=== PATIENT | female | born 1995 | race Caucasian/White ===

== ENCOUNTER 2017-05-24 23:37 | Emergency (ER) | payer SELFPAY ==
[2017-05-24 23:59] VITALS: BP 128/79
== END 2017-05-25 | disposition left against medical advice (07) ==
LOC: ER 23:37
DX: Z53.21 Procedure and treatment not carried out due to patient leaving prior to being seen by health care provider (principal)

== ENCOUNTER 2018-02-26 16:38 | Emergency (ER) | payer MEDICAID ==
--- NOTE | 2018-02-26 17:41 | ER Document Report ---
ED Psych Disorder / Suicide - General Chief Complaint: Psych Problem Stated Complaint: PSYCH EVAL Time Seen by Provider: 02/26/18 16:44 Notes: The patient is a 22-year-old female, past medical history prior suicide attempts , psychosis, presents requesting help with her medications. She has not slept for the past week. EMS brought in her medications and she has not taken her nightly Risperdal or [place] for the past 3 days. She said Lamictal has helped her in the past. She denies any SI, HI or substance abuse for the past week. Her last drug use was 1 week ago and included cocaine, heroin and methamphetamines. Patient denies chest pain, shortness of breath, headache, fevers, neck stiffness or attempt to harm herself. TRAVEL OUTSIDE OF THE [place] IN LAST 30 DAYS: No - Related Data Allergies/Adverse Reactions: quetiapine fumarate [From Seroquel] Allergy (Severe, Verified 03/24/16 14:08) acetaminophen [From Tylenol] Allergy (Verified 03/24/16 14:08) Past Medical History - General Information source: Patient - Social History Smoking Status: Current Every Day Smoker Frequency of alcohol use: Social Drug Abuse: Cocaine, Heroin, Methamphetamine Family History: Reviewed & Not Pertinent Patient has suicidal ideation: No Patient has homicidal ideation: No Pulmonary Medical History: Denies: Hx Tuberculosis Neurological Medical History: Reports: Hx Migraine. Denies: Hx Cerebrovascular Accident, Hx Seizures Endocrine Medical History: Denies: Hx Graves' Disease, Hx Hyperthyroidism, Hx Hypothyroidism Renal/ Medical History: Denies: Hx End Stage Renal Disease, Hx Kidney Stones, Hx Ovarian Cysts, Hx Peritoneal Dialysis, Hx Pelvic Inflammatory Disease Malignancy Medical History: Denies: Hx Breast Cancer, Hx Cervical Cancer, Hx Leukemia, Hx Ovarian Cancer Musculoskeltal Medical History: Denies Hx Multiple Sclerosis, Reports Hx Musculoskeletal Deformity, Reports Hx Musculoskeletal Trauma Psychiatric Medical History: Reports: Hx Attention Deficit Hyperactivity Disorder, Hx Bipolar Disorder, Hx Depression, Hx Schizophrenia Denies: Hx Dementia Traumatic Medical History: Reports: Hx Fractures Infectious Medical History: Denies: Hx HIV Past Surgical History: Reports: Hx Orthopedic Surgery - Left tib/fib repair, left shouldar ac repair.. Denies: Hx Pacemaker - Immunizations Immunizations up to date: Yes Hx Diphtheria, Pertussis, Tetanus Vaccination: Yes Review of Systems - Review of Systems Notes: REVIEW OF SYSTEMS: CONSTITUTIONAL: -fevers, -chills EENT: -eye pain, -difficulty swallowing, -nasal congestion CARDIOVASCULAR: -chest pain, -syncope. RESPIRATORY: -cough, -SOB GASTROINTESTINAL: -abdominal pain, -nausea, -vomiting, -diarrhea GENITOURINARY: -dysuria, -hematuria MUSCULOSKELETAL: -back pain, -neck pain SKIN: -rash or skin lesions. HEMATOLOGIC: -easy bruising or bleeding. LYMPHATIC: -swollen, enlarged glands. NEUROLOGICAL: -altered mental status or loss of consciousness, -headache, - neurologic symptoms PSYCHIATRIC: -anxiety, -depression, +insomnia ALL OTHER SYSTEMS REVIEWED AND NEGATIVE. Physical Exam - Vital signs Vitals: Temp Pulse Resp BP Pulse Ox 98.0 F 112 H 16 126/74 H 98 02/26/18 16:47 02/26/18 16:47 02/26/18 16:47 02/26/18 16:47 02/26/18 16:47 - Notes Notes: PHYSICAL EXAMINATION: GENERAL: Well-appearing, well-nourished and in no acute distress. HEAD: Atraumatic, normocephalic. EYES: Pupils equal round and reactive to light, extraocular movements intact, sclera anicteric, conjunctiva are normal. ENT: nares patent, oropharynx clear without exudates. Moist mucous membranes. NECK: Normal range of motion, supple without lymphadenopathy LUNGS: Breath sounds clear to auscultation bilaterally and equal. No wheezes rales or rhonchi. HEART: Mild tachycardia. ABDOMEN: Soft, nontender, normoactive bowel sounds. No guarding, no rebound. No masses appreciated. EXTREMITIES: Normal range of motion, no pitting or edema. No cyanosis. NEUROLOGICAL: Cranial nerves grossly intact. Normal speech, normal gait. Normal sensory and motor exams. PSYCH: Appropriate mood, cooperative, denies SI or HI. Does not appear acutely psychotic. SKIN: Warm, Dry, normal turgor, no rashes or lesions noted. Course - Re-evaluation Re-evalutation: Patient appears very well and is appropriate. She does not appear acutely psychotic and has no SI or HI at this time. No indication for IVC at this time. Patient is requesting medication changes, as she says that Lamictal has helped her better than lithium or Risperdal. She has her packet of medications with her and she has not taken her lithium or Risperdal for the past 3 days. She took her dose this morning. Instructed her that her cocaine and methamphetamine use, along with not taking her Risperdal, is most likely leading to her insomnia. She is counseled about always taking her medications and speaking to her primary mental health team about medication changes. Pt would like to stay overnight and speak to mental health about any medication changes. She has no criteria for IVC. - Vital Signs Vital signs: Temp Pulse Resp BP Pulse Ox 98.0 F 112 H 16 126/74 H 98 02/26/18 16:47 02/26/18 17:25 02/26/18 16:47 02/26/18 16:47 02/26/18 16:47 - Laboratory Result Diagrams: 02/26/18 17:43 02/26/18 17:43 Laboratory results interpreted by me: 02/26/18 02/26/18 17:43 17:43 WBC 11.0 H Hgb 11.8 L Hct 35.5 L RDW 15.2 H Salicylates < 1.0 L Acetaminophen < 10 L [place] 0.5 L Discharge - Discharge Clinical Impression: Nonadherence to medication Insomnia Qualifiers: Insomnia type: unspecified Qualified Code(s): G47.00 - Insomnia, unspecified Condition: Stable
[2018-02-26 17:52] LABS: AMORPHOUS SEDIMENT,URINE TRACE /HPF; APPEARANCE,URINE CLOUDY; BILIRUBIN,URINE NEGATIVE (NEGATIVE); COLOR,URINE YELLOW; GLUCOSE, URINE NEGATIVE (NEGATIVE); KETONES,URINE NEGATIVE (NEGATIVE); LEUKOCYTE ESTERASE,URINE NEGATIVE (NEGATIVE); NITRITE,URINE NEGATIVE (NEGATIVE); PROTEIN,URINE NEGATIVE (NEGATIVE); URINE SPECIFIC GRAVITY 1.014; UROBILINOGEN,URINE NEGATIVE mg/dL (<2.0)
[2018-02-26 17:56] LABS: ABSOLUTE BASOPHILS # (AUTO) 0.1 10^3/uL (0.0-0.2); ABSOLUTE EOSINOPHILS # (AUTO) 0.2 10^3/uL (0.0-0.6); ABSOLUTE LYMPHOCYTES (AUTO) 2.4 10^3/uL (0.5-4.7); ABSOLUTE MONOCYTES (AUTO) 0.7 10^3/uL (0.1-1.4); ABSOLUTE NEUT (AUTO) 7.7 10^3/uL (1.7-8.2); BASOPHILS % (AUTO) 0.5 % (0-2); EOSINOPHILS % (AUTO) 1.7 % (0-6); HEMATOCRIT 35.5 % (36.0-47.0); HEMOGLOBIN 11.8 g/dL (12.0-15.5); LYMPHOCYTES % (AUTO) 21.7 % (13-45); MEAN CORPUSCULAR HEMOGLOBIN 28.5 pg (27.0-33.4); MEAN CORPUSCULAR HGB CONC 33.2 g/dL (32.0-36.0); MEAN CORPUSCULAR VOLUME 86 fl (80-97); MONOCYTES % (AUTO) 6.1 % (3-13); PLATELET COUNT 249 10^3/uL (150-450); RED BLOOD COUNT 4.13 10^6/uL (3.72-5.28); RED CELL DISTRIBUTION WIDTH 15.2 % (11.5-14.0); TOTAL CELLS COUNTED % (AUTO) 100 %
[2018-02-26 18:02] LABS: URINE AMPHETAMINES SCREEN NEGATIVE; URINE BARBITURATES SCREEN NEGATIVE; URINE BENZODIAZEPINES SCREEN NEGATIVE; URINE COCAINE SCREEN NEGATIVE; URINE MARIJUANA (THC) SCREEN NEGATIVE; URINE METHADONE SCREEN NEGATIVE; URINE PHENCYCLIDINE SCREEN NEGATIVE
[2018-02-26 18:16] LABS: ALANINE AMINOTRANSFERASE 22 U/L (9-52); ALBUMIN 4.4 g/dL (3.5-5.0); ALKALINE PHOSPHATASE 56 U/L (38-126); ANION GAP 12 (5-19); ASPARTATE AMINO TRANSFERASE 20 U/L (14-36); BILIRUBIN,DIRECT 0.3 mg/dL (0.0-0.4); BILIRUBIN,TOTAL 0.3 mg/dL (0.2-1.3); BLOOD UREA NITROGEN 12 mg/dL (7-20); CARBON DIOXIDE 30 mmol/L (22-30); CHLORIDE 103 mmol/L (98-107); GLUCOSE 77 mg/dL (75-110); LITHIUM 0.5 mEq/L (0.6-1.2); POTASSIUM 4.5 mmol/L (3.6-5.0); SODIUM 144.7 mmol/L (137-145); TOTAL PROTEIN 7.1 g/dL (6.3-8.2)
[2018-02-26 18:18] LABS: ACETAMINOPHEN < 10 ug/mL (10-30); ALCOHOL < 10 mg/dL (NONE DETECTED); SALICYLATE < 1.0 mg/dL (2.0-20.0)
--- NOTE | 2018-02-26 18:36 | EKG REPORT ---
SEVERITY:- ABNORMAL ECG - SINUS RHYTHM ST ELEVATION SUGGESTS NORMAL VARIANT. : Confirmed by: Nirmal Israel MD 26-Feb-2018 18:35:39
--- NOTE | 2018-02-27 09:24 | ER Document Report ---
Doctor's Note Notes: 02/27/18 10:22 As the rounding physician for our psychiatric patients, I have reviewed the chart, vitals, lab work. Patient has been examined and noted to be stable, she states that she is here to tweak her medications, wishes to be discharged home. I am awaiting mental health in put.
--- NOTE | 2018-02-27 10:20 | PSYCHOLOGICAL NOTE ---
Psych Note - Psych Note Psych Note: Reason for consult:request for medication changes The patient is a 22-year-old female, past medical history prior suicide attempts , psychosis, presents requesting help with her medications. She has not slept for the past week. EMS brought in her medications and she has not taken her nightly Risperdal or [place] for the past 3 days. She said Lamictal has helped her in the past. Patient disclosed she needs her "medication regulated." She is seen by [facility] [place] [place] and just had a home visit yesterday and disclosed her outpatient provider told her they would be holding off any medication changes currently. She reports that [facility] changes as a "jump decision that I now regret." She discloses that he understands her outpatient provider is most appropriate resource for any medication changes since they follow her progress. Patient agrees to contact her outpatient provider with further questions in regards to her medications. Patient denies missing any medications stating that she did receive a new pack of medications so her blister packs are overlapping and it might look like she has not taken any but she has. Patient is alert and orientated to person, place, time and circumstance. Mood is euthymic with congruent affect as evidenced by patient smiling and openly engaging with clinician. Patient denies suicidal and homicidal ideation. Delusions are absent and behaviors congruent with intact reality based presentation i.e. organized and linear thought processes. Conversational speech was within normal rate, tone and prosody. Eye contact was well- maintained. Intellectual abilities appear to be within the average range. Attention and concentration are good. Insight, judgment, impulse control are currently good. Behavioral Health Team contacted [facility] [place], [place] to confirm patient receives services through them. Patient is assigned to an ACT Team. She is currently in [facility] for [facility] and is being followed until the patient decides if she will return to [facility] or if she needs to transfer to a new provider if she stays in [facility]. Patient was just in [facility] for psychiatric treatment for 01/16- 01/30. Patient was in [facility] from 02/07-02/13. Patient was voluntary while in [facility]. Patient was seen on Sunday and received her monthly medication shot. Patient will be seen Sunday at her home, but if she needs to be seen before she can walk in to the office. No medication changes at this time Diagnosis 1. 296.44 (F31.2) Bipolar I with psychotic features Impression/plan: Patient is cleared from acute psychiatric services. Patient has a higher level of care with [facility]. Patient was seen by her provider yesterday and disclosed they wanted to hold off on any medication changes. Patient disclosed she had been taking her medications; however, her blister packs show she has missed a few days. It is recommended the patient take her medication as prescribed and to follow up with her outpatient provider for any continued concerns for nonacute medication changes. Patient will be seen Sunday at her home, but if she needs to be seen before she can walk in to the office. Dr. Malloy was consulted on the care and management of this patient , attending physician is in agreement with recommendations and disposition.
[2018-02-27 11:23] VITALS: BP 119/68
== END 2018-02-27 11:22 | disposition home or self-care (01) ==
LOC: ER 16:38
DX: G47.00 Insomnia, unspecified (principal); Z91.14 Patient's other noncompliance with medication regimen; F17.200 Nicotine dependence, unspecified, uncomplicated; Z88.6 Allergy status to analgesic agent
CPT/HCPCS: 36415; 80053; 80178; 80307; 81001; 85025; 93005; 93010; 99285

== ENCOUNTER 2018-09-19 15:11 | Emergency (ER) | payer SELFPAY ==
[2018-09-19 15:42] LABS: ABSOLUTE EOSINOPHILS # (AUTO) 0.1 10^3/uL (0.0-0.6); ABSOLUTE LYMPHOCYTES (AUTO) 1.7 10^3/uL (0.5-4.7); ABSOLUTE MONOCYTES (AUTO) 0.4 10^3/uL (0.1-1.4); ABSOLUTE NEUT (AUTO) 3.2 10^3/uL (1.7-8.2); BASOPHILS % (AUTO) 0.8 % (0-2); EOSINOPHILS % (AUTO) 1.8 % (0-6); HEMATOCRIT 36.8 % (36.0-47.0); HEMOGLOBIN 12.6 g/dL (12.0-15.5); LYMPHOCYTES % (AUTO) 31.9 % (13-45); MEAN CORPUSCULAR HEMOGLOBIN 28.3 pg (27.0-33.4); MEAN CORPUSCULAR HGB CONC 34.3 g/dL (32.0-36.0); MEAN CORPUSCULAR VOLUME 83 fl (80-97); MONOCYTES % (AUTO) 7.4 % (3-13); PLATELET COUNT 188 10^3/uL (150-450); RED BLOOD COUNT 4.45 10^6/uL (3.72-5.28); RED CELL DISTRIBUTION WIDTH 14.5 % (11.5-14.0); SEGMENTED NEUTROPHILS % (AUTO) 58.1 % (42-78); TOTAL CELLS COUNTED % (AUTO) 100 %; WHITE BLOOD COUNT 5.4 10^3/uL (4.0-10.5)
--- NOTE | 2018-09-19 16:03 | PSYCHOLOGICAL NOTE ---
Psych Note - Psych Note Date seen by psych provider: 09/19/18 Time seen by psych provider: 15:40 Psych Note: Reason for Consult: manic Patient presented to [facility] via EMS. Patient reports that she had bad news of finding out her best friend today; patient became tearful and stood flat against the wall. She continued reports that her best friend is her cousin and her "grandmother's sister's aunt." Patient then started to laugh and reported that she did not even understand what she just said. Patient states "yes I am in a manic episode... Yes I screamed in the law heard me... Yes I broke the fridge with BPA... Yes the water bottle from the car was BPA free and I really appreciated being able to drink out of that... Yes I saw the Grim Jin.... Yes I heard (unintelligible)..." Patient then stated that she would really wish she could sleep until 6 AM tomorrow. At this point patient attempted to show the clinician that she scratched her stomach and lifted her shirt all the way up to her neck. Clinician reported she would talk to the attending physician to see what can be done to assist with helping her sleep. Patient stated thank you and started crying again. As clinician open the door was noted the patient continued to speak and continued to make demonstrate facial affect indicating she was still talking; however, no sound was coming from her mouth. Patient is alert and orientated to person, place, time and circumstance. Mood is manic with labile affect. Patient denies suicidal homicidal ideation. Patient reports seeing the Vonda reaper. Patient is currently having difficulty with linear organized conversation demonstrating flight of thought. Attention and concentration is poor. Insight, judgment, impulse control is poor. Medication recommendations per [facility]'s contracted psychiatrist Dr. Trey GRANGER are as follows Zyprexa MG twice daily clonidine 0.1 mg nightly Cogentin 1 mg daily Diagnosis 1. 296.44 (F31.2) Bipolar I with psychotic features Impression\\plan: Patient is recommended for IVC. Patient is currently manic, labile affect with flight of thought and possible hallucinations. Patient's attention, concentration, insight, judgment, and impulse control is poor; she is a danger to herself. Medication recommendations have been provided. patient will be reevaluated. Dr. Malloy was consulted and the care management this patient; attending physician is agreement with recommendations and disposition.
[2018-09-19 16:14] LABS: ALANINE AMINOTRANSFERASE 59 U/L (9-52); ALBUMIN 4.4 g/dL (3.5-5.0); ALKALINE PHOSPHATASE 58 U/L (38-126); ANION GAP 10 (5-19); ASPARTATE AMINO TRANSFERASE 34 U/L (14-36); BILIRUBIN,DIRECT 0.1 mg/dL (0.0-0.4); BILIRUBIN,TOTAL 0.7 mg/dL (0.2-1.3); BLOOD UREA NITROGEN 12 mg/dL (7-20); CALCIUM 9.6 mg/dL (8.4-10.2); CARBON DIOXIDE 27 mmol/L (22-30); CHLORIDE 106 mmol/L (98-107); GLUCOSE 91 mg/dL (75-110); POTASSIUM 5.1 mmol/L (3.6-5.0); SODIUM 142.7 mmol/L (137-145); TOTAL PROTEIN 7.3 g/dL (6.3-8.2)
[2018-09-19 16:20] LABS: ALCOHOL < 10 mg/dL (NONE DETECTED)
[2018-09-19 16:27] LABS: AMORPHOUS SEDIMENT,URINE TRACE /HPF; APPEARANCE,URINE CLOUDY; BILIRUBIN,URINE NEGATIVE (NEGATIVE); COLOR,URINE YELLOW; GLUCOSE, URINE NEGATIVE (NEGATIVE); KETONES,URINE NEGATIVE (NEGATIVE); LEUKOCYTE ESTERASE,URINE NEGATIVE (NEGATIVE); NITRITE,URINE NEGATIVE (NEGATIVE); PROTEIN,URINE NEGATIVE (NEGATIVE); URINE SPECIFIC GRAVITY 1.024
[2018-09-19 16:35] LABS: URINE AMPHETAMINES SCREEN NEGATIVE; URINE BARBITURATES SCREEN NEGATIVE; URINE BENZODIAZEPINES SCREEN NEGATIVE; URINE COCAINE SCREEN NEGATIVE; URINE MARIJUANA (THC) SCREEN NEGATIVE; URINE METHADONE SCREEN NEGATIVE; URINE PHENCYCLIDINE SCREEN NEGATIVE
[2018-09-19] MEDS: BENZTROPINE MESYLATE 1 MG TABLET PO SCH (16:44)
[2018-09-19] MEDS: OLANZAPINE 5 MG TABLET PO SCH (17:17)
--- NOTE | 2018-09-19 17:49 | ER Document Report ---
ED Psych Disorder / Suicide - General TRAVEL OUTSIDE OF THE [place] IN LAST 30 DAYS: No <BENITO SOTO - Last Filed: 09/19/18 17:55> <RALPH VILLAREAL - Last Filed: 09/20/18 08:49> <NINACECILIO - Last Filed: 09/20/18 10:11> - General Chief Complaint: Psych Problem Stated Complaint: PSYCH EVAL Time Seen by Provider: 09/19/18 16:35 Notes: Patient was brought in by EMS and says that she needs "a break from grieving". She says that her best friend just suddenly and unexpectedly. During the conversation, patient exhibits flight of ideas, confused somewhat, and unwillingness to talk at times. Says she does not want to mention the name but that it is a relative who has . Patient says she feels very tired. When asked about mental illness history, she mentions bipolar and schizophrenia. Says she has been on medicines for these conditions but no longer taking anything at this time. Sometimes, when the patient is answering my questions, I am not sure if she is doing so in an uncontrolled manner or if she is thinking and planning her responses to sound unusual or weird. Says she has hepatitis C, diagnosed about a year ago. Denies using any illicit drugs. (BENITO SOTO) - Related Data Allergies/Adverse Reactions: quetiapine fumarate [From Seroquel] Allergy (Severe, Verified 03/24/16 14:08) acetaminophen [From Tylenol] Allergy (Verified 03/24/16 14:08) Past Medical History - Social History Smoking Status: Never Smoker Chew tobacco use (# tins/day): No Frequency of alcohol use: None Drug Abuse: None Family History: Reviewed & Not Pertinent Patient has suicidal ideation: No Patient has homicidal ideation: No Pulmonary Medical History: Denies: Hx Tuberculosis Neurological Medical History: Reports: Hx Migraine Musculoskeletal Medical History: Reports Hx Musculoskeletal Deformity, Reports Hx Musculoskeletal Trauma Psychiatric Medical History: Reports: Hx Attention Deficit Hyperactivity Disorder, Hx Bipolar Disorder, Hx Depression, Hx Schizophrenia Denies: Hx Dementia Traumatic Medical History: Reports: Hx Fractures Infectious Medical History: Reports: Hx Hepatitis - Hepatitis C. Denies: Hx HIV Past Surgical History: Reports: Hx Orthopedic Surgery - Left tib/fib repair, left shouldar ac repair. - Immunizations Immunizations up to date: Yes Hx Diphtheria, Pertussis, Tetanus Vaccination: Yes <CHARLESBENITO - Last Filed: 09/19/18 17:55> Review of Systems <BENITO SOTO - Last Filed: 09/19/18 17:55> <RALPH VILLAREAL - Last Filed: 09/20/18 08:49> <CECILIO WOOD - Last Filed: 09/20/18 10:11> - Review of Systems Notes: REVIEW OF SYSTEMS: Patient is not very helpful. Does not answer with much information. CONSTITUTIONAL : Denies fever. EENT: Denies eye, ear, nose or mouth or throat pain or other symptoms. CARDIOVASCULAR: Denies chest pain. RESPIRATORY: Denies cough, chest congestion, or shortness of breath. GASTROINTESTINAL: Denies abdominal pain or nausea, vomiting, or diarrhea. GENITOURINARY: Denies difficulty or painful urinating, urinary frequency, blood in urine. MUSCULOSKELETAL: Denies back or neck pain. Denies joint pain or swelling. SKIN: Denies rash or skin lesions. NEUROLOGICAL: Denies LOC or altered mental status. Sometimes headache. Denies sensory loss or motor deficits. ALL OTHER SYSTEMS REVIEWED AND NEGATIVE. (BENITO SOTO) Physical Exam - Vital signs Interpretation: Normal <BENITO SOTO - Last Filed: 09/19/18 17:55> <RALPH VILLAREAL - Last Filed: 09/20/18 08:49> <CECILIO WOOD - Last Filed: 09/20/18 10:11> - Vital signs Vitals: Temp Pulse Resp BP Pulse Ox 98.0 F 85 16 135/80 H 100 09/19/18 15:55 09/19/18 15:55 09/19/18 15:55 09/19/18 15:55 09/19/18 15:55 Notes: PHYSICAL EXAMINATION: GENERAL: Well-appearing, in no acute distress. Awake and alert, but seems confused and answers some questions appropriately while being invasive with other questions. Sometimes I get the impression that the patient is thinking about her conversation so that she can sound strange or weird. She does seem to be somewhat hyper. HEAD: Atraumatic, normocephalic. EYES: Pupils equal round and reactive to light, extraocular movements intact. ENT: oropharynx clear without exudates. Moist mucous membranes. NECK: Normal range of motion, supple. LUNGS: Breath sounds clear and equal bilaterally. HEART: Regular rate and rhythm without murmurs. ABDOMEN: Soft, nontender. No guarding or rebound. No masses. BACK: No tenderness throughout entire back. EXTREMITIES: Normal range of motion without pain. NEUROLOGICAL: Normal speech, normal gait. Normal sensory, motor, and reflex exams. Awake, alert, and oriented x3. Cranial nerves normal. PSYCH: Calm. Flights of ideas. Hyper conversation. SKIN: Warm, dry, no rashes. (BENITO SOTO) Course - Laboratory Result Diagrams: 09/19/18 15:30 09/19/18 15:30 - EKG Interpretation by Ks EKG shows normal: Sinus rhythm Rate: Normal Rhythm: NSR <BENITO SOTO - Last Filed: 09/19/18 17:55> - Laboratory Result Diagrams: 09/19/18 15:30 09/19/18 15:30 <RALPH VILLAREAL - Last Filed: 09/20/18 08:49> - Laboratory Result Diagrams: 09/19/18 15:30 09/19/18 15:30 <CECILIO WOOD - Last Filed: 09/20/18 10:11> - Re-evaluation Re-evalutation: 09/20/18 10:11 Patient was evaluated at bedside by myself earlier this morning. Patient is resting comfortably with no obvious distress. Patient states feeling much better at this time denies any homicidal suicidal ideation patient also has no signs of acute psychosis or lucian. Patient agrees with discharge home follow- up as directed by our psychiatric providers. Patient will be discharged home. ( CECILIO WOOD) - Vital Signs Vital signs: Temp Pulse Resp BP Pulse Ox 98.2 F 84 16 105/63 100 09/20/18 09:26 09/20/18 09:26 09/20/18 09:26 09/20/18 09:26 09/20/18 09:26 - Laboratory Laboratory results interpreted by co: 09/19/18 09/19/18 09/19/18 15:30 15:30 15:30 RDW 14.5 H Potassium 5.1 H ALT 59 H Urine Urobilinogen 2.0 H Discharge <BENITO SOTO - Last Filed: 09/19/18 17:55> <RALPH VILLAREAL - Last Filed: 09/20/18 08:49> <CECILIO WOOD - Last Filed: 09/20/18 10:11> - Discharge Clinical Impression: Manic behavior Bipolar disorder Qualifiers: Active/Remission status: currently active Current bipolar episode type: manic Current episode severity: unspecified Qualified Code(s): F31.9 - Bipolar disorder, unspecified Condition: Stable Disposition: HOME, SELF-CARE Additional Instructions: You have been evaluated by both medical and behavioral health teams and been deemed appropriate for discharge. You have been started on new medications of Zyprexa at 5 mg twice daily, Cogentin 1 mg daily and clonidine 0.1mg nightly; these take as directed. You are recommended follow-up with your outpatient mental health provider, jessy, in 3-5 days for continued outpatient mental services. Bipolar Disorder Bipolar disorder is also called manic-depressive disorder. Depression alternates with brain hyperactivity called lucian. Each phase lasts from several days to a few weeks. We don't know exactly what causes bipolar disorder , but it's treatable. During the "manic phase," you may feel elated and energetic. You may have racing thoughts, rapid speech, increased activity, and grandiose ideas. During this time, you may not realize how poor your judgement is. Inappropriate spending, drug abuse, excessive alcohol use, marriage problems, and irresponsible sexual behavior are common during the manic phase. During the "depressive phase," you might feel depressed, guilty, worthless , fatigued, and unable to concentrate. You might have thoughts of suicide. Good treatments are available for bipolar disorder. Honor is a classic drug for bipolar disorder, and is still often useful. If the manic phase is very mild, an antidepressant alone can be prescribed. If the manic phase is very severe, an antipsychotic medicine (such as Haldol) may be needed. The treatment must be matched to your symptoms, so it's important to work closely with your psychiatric care provider. Contact your physician, the hospital emergency center, crisis line, or your counsellor if you are losing control or having self-destructive thoughts. AT ANY TIME, IF YOUR SYMPTOMS CHANGE SIGNIFICANTLY OR WORSEN OR YOU DEVELOP NEW SYMPTOMS, RETURN TO THE EMERGENCY DEPARTMENT IMMEDIATELY FOR RE-EVALUATION. Prescriptions: Benztropine Mesylate [Cogentin 1 mg Tablet] 1 mg PO QHS #7 tablet Clonidine HCl [Catapres] 0.1 mg PO DAILY #7 tablet Olanzapine [Zyprexa 5 mg Tablet] 5 mg PO Q12 #14 tablet Referrals: [facility] [Outside] - Follow up in 3-5 days
[2018-09-19] MEDS ORDERED: CLONIDINE HCL 0.1 MG TABLET PO SCH (22:00)
--- NOTE | 2018-09-20 08:49 | PSYCHOLOGICAL NOTE ---
Psych Note - Psych Note Date seen by psych provider: 09/20/18 Time seen by psych provider: 07:35 Psych Note: Reason for Consult: manic Consent permissions: Patient's mother and father Baldo [phone] Check-in conducted with patient Patient reports that she is feeling much better. She confirms that she got good sleep last night. When asked about seeing the Grim Reaper previously she states that it was the day before yesterday. She disclosed that she [place] however was unable to be seen. She states she was trying to get in for medication management because she had been put on a new medication that she reports did not make her feel right. She states that when she got home she remembers closing her eyes and seeing a figure that she felt was the Gram Reaper. She states that it was really small and looked like a cartoon. She denies seeing it since then. Patient provided consent to contact her parents Lisa and Arpan. She reports that her parents were really concerned because she had not been sleeping so is very glad that she it was able to get some sleep last night. Behavior health team attempted contact with patient's parents; left message. Medication recommendations per [facility]'s contracted psychiatrist Dr. Trey GRANGER are as follows Zyprexa MG twice daily clonidine 0.1 mg nightly Cogentin 1 mg daily Diagnosis 1. 296.44 (F31.2) Bipolar I with psychotic features Impression\plan: Patient is recommended for rescind of IVC and cleared from acute psychiatric services. Patient is no longer demonstrating manic behavior. She is sitting calm and able to have an organized linear conversation. Patient disclosed that she was having some difficulties with new medications she was put on. Dr. Malloy was consulted and the care management this patient ; attending physician is agreement with recommendations and disposition.
[2018-09-20] MEDS: OLANZAPINE 5 MG TABLET PO SCH (09:18)
[2018-09-20] MEDS: BENZTROPINE MESYLATE 1 MG TABLET PO SCH (09:19)
--- NOTE | 2018-09-20 09:19 | ER Document Report ---
Doctor's Note Notes: 09/20/18 09:18 Patient has been seen and evaluated resting comfortably no acute distress. Laboratory values previous provider note and vital signs have been evaluated. Patient otherwise looks to be stable for disposition/transfer.
[2018-09-20 09:31] VITALS: BP 105/63
--- NOTE | 2018-09-20 10:40 | EKG REPORT ---
SEVERITY:- NORMAL ECG - SINUS RHYTHM : Confirmed by: Dennis Bean 20-Sep-2018 10:39:28
== END 2018-09-20 11:19 | disposition home or self-care (01) ==
LOC: ER 15:11
DX: F31.9 Bipolar disorder, unspecified (principal); F30.9 Manic episode, unspecified; Z88.6 Allergy status to analgesic agent; Z86.19 Personal history of other infectious and parasitic diseases
CPT/HCPCS: 36415; 80053; 80307; 81001; 85025; 93005; 93010; 99285

== ENCOUNTER 2018-11-17 17:46 | Emergency (ER) | payer MEDICAID ==
[2018-11-17] MEDS ORDERED: HALOPERIDOL 5 MG TABLET PO ONE (18:27)
--- NOTE | 2018-11-17 18:32 | ER Document Report ---
Addendum entered and electronically signed by BENITO SOTO MD 11/18/18 15:40: Discharge - Discharge Clinical Impression: Agitation Bipolar disorder Qualifiers: Active/Remission status: remission status unspecified Qualified Code(s): F31.9 - Bipolar disorder, unspecified Condition: Stable Disposition: HOME, SELF-CARE Additional Instructions: You have been evaluated by both medical and behavioral health teams and have deemed appropriate for discharge. You have been provided prescriptions for Zyprexa 5mg twice daily, Cogentin 1mg daily and Clonidine 0.5mg every evening. You are encouraged to follow up with your outpatient mental health provider, [facility] in [place], for continued services. Bipolar Disorder Bipolar disorder is also called manic-depressive disorder. Depression alternates with brain hyperactivity called lucian. Each phase lasts from several days to a few weeks. We don't know exactly what causes bipolar disorder, but it's treatable. During the "manic phase," you may feel elated and energetic. You may have racing thoughts, rapid speech, increased activity, and grandiose ideas. During this time, you may not realize how poor your judgement is. Inappropriate spending, drug abuse, excessive alcohol use, marriage problems, and irresponsible sexual behavior are common during the manic phase. During the "depressive phase," you might feel depressed, guilty, worthless, fatigued, and unable to concentrate. You might have thoughts of suicide. Good treatments are available for bipolar disorder. Yulee is a classic drug for bipolar disorder, and is still often useful. If the manic phase is very mild, an antidepressant alone can be prescribed. If the manic phase is very severe, an antipsychotic medicine (such as Haldol) may be needed. The treatment must be matched to your symptoms, so it's important to work closely with your psychiatric care provider. Contact your physician, the hospital emergency center, crisis line, or your counsellor if you are losing control or having self-destructive thoughts. AT ANY TIME, IF YOUR SYMPTOMS CHANGE SIGNIFICANTLY OR WORSEN OR YOU DEVELOP NEW SYMPTOMS, RETURN TO THE EMERGENCY DEPARTMENT IMMEDIATELY FOR RE-EVALUATION. Prescriptions: Clonidine HCl [Catapres 0.1 mg Tablet] 0.1 mg PO QHS #7 tablet Benztropine Mesylate [Cogentin 1 mg Tablet] 1 mg PO DAILY #7 tablet Olanzapine [Zyprexa 5 mg Tablet] 5 mg PO BID #14 tablet Referrals: [facility] [Outside] - Follow up as needed Addendum entered and electronically signed by RALPH VILLAREAL LCSWA 11/18/18 10:16: Discharge - Discharge Clinical Impression: Agitation Bipolar disorder Qualifiers: Active/Remission status: remission status unspecified Qualified Code(s): F31.9 - Bipolar disorder, unspecified Condition: Stable Disposition: HOME, SELF-CARE Additional Instructions: You have been evaluated by both medical and behavioral health teams and have deemed appropriate for discharge. You have been provided prescriptions for Zyprexa 5mg twice daily, Cogentin 1mg daily and Clonidine 0.5mg every evening. You are encouraged to follow up with your outpatient mental health provider, [facility] in [place], for continued services. Bipolar Disorder Bipolar disorder is also called manic-depressive disorder. Depression alternates with brain hyperactivity called lucian. Each phase lasts from several days to a few weeks. We don't know exactly what causes bipolar disorder, but it's treatable. During the "manic phase," you may feel elated and energetic. You may have racing thoughts, rapid speech, increased activity, and grandiose ideas. During this time, you may not realize how poor your judgement is. Inappropriate spending, drug abuse, excessive alcohol use, marriage problems, and irresponsible sexual behavior are common during the manic phase. During the "depressive phase," you might feel depressed, guilty, worthless, fatigued, and unable to concentrate. You might have thoughts of suicide. Good treatments are available for bipolar disorder. Yulee is a classic drug for bipolar disorder, and is still often useful. If the manic phase is very mild, an antidepressant alone can be prescribed. If the manic phase is very severe, an antipsychotic medicine (such as Haldol) may be needed. The treatment must be matched to your symptoms, so it's important to work closely with your psychiatric care provider. Contact your physician, the hospital emergency center, crisis line, or your counsellor if you are losing control or having self-destructive thoughts. AT ANY TIME, IF YOUR SYMPTOMS CHANGE SIGNIFICANTLY OR WORSEN OR YOU DEVELOP NEW SYMPTOMS, RETURN TO THE EMERGENCY DEPARTMENT IMMEDIATELY FOR RE-EVALUATION. Referrals: [facility] [Outside] - Follow up as needed Original Note: ED General - General Chief Complaint: Altered Mental Status Stated Complaint: PSYCH EVAL Time Seen by Provider: 11/17/18 18:18 Cannot obtain history due to: Uncooperative, Altered mental status Notes: Patient is a 23-year-old female with a past medical history of bipolar type I with psychotic features who presents clearly quite agitated, apparently off all medications. I am unable to get any additional history from the patient as she is quite agitated when she really states to me is "I have been watching C NV[employer], I am going to put a lawsuit on you". She then states that she remembers me from apparently standing by a printer a year ago. When I inform her that we have never met before she stopped speaking to me. TRAVEL OUTSIDE OF THE [place] IN LAST 30 DAYS: No - Related Data Allergies/Adverse Reactions: quetiapine fumarate [From Seroquel] Allergy (Severe, Verified 03/24/16 14:08) acetaminophen [From Tylenol] Allergy (Verified 03/24/16 14:08) Past Medical History - General Information source: Patient Cannot obtain history due to: Uncooperative, Altered mental status - Social History Smoking Status: Unknown if Ever Smoked Lives with: Family Family History: Reviewed & Not Pertinent Patient has suicidal ideation: No Patient has homicidal ideation: No Pulmonary Medical History: Denies: Hx Tuberculosis Neurological Medical History: Reports: Hx Migraine. Denies: Hx Seizures Renal/ Medical History: Denies: Hx End Stage Renal Disease, Hx Kidney Stones, Hx Peritoneal Dialysis GI Medical History: Reports: Hx Hepatitis - Hepatitis C Musculoskeletal Medical History: Reports Hx Musculoskeletal Deformity, Reports Hx Musculoskeletal Trauma Psychiatric Medical History: Reports: Hx Attention Deficit Hyperactivity Disorder, Hx Bipolar Disorder, Hx Depression, Hx Schizophrenia Denies: Hx Dementia Traumatic Medical History: Reports: Hx Fractures Infectious Medical History: Reports: Hx Hepatitis - Hepatitis C. Denies: Hx HIV Past Surgical History: Reports: Hx Orthopedic Surgery - Left tib/fib repair, left shouldar ac repair.. Denies: Hx Pacemaker - Immunizations Immunizations up to date: Yes Hx Diphtheria, Pertussis, Tetanus Vaccination: Yes Review of Systems - Review of Systems -: Yes ROS unobtainable due to patient's medical condition Physical Exam - Vital signs Vitals: Temp Pulse Resp BP Pulse Ox 98.7 F 86 16 119/80 99 11/17/18 17:58 11/17/18 17:58 11/17/18 17:58 11/17/18 17:58 11/17/18 17:58 Notes: PHYSICAL EXAMINATION: GENERAL: Covered in a paint material on her face and chest. Seems agitated and paranoid. HEAD: Atraumatic, normocephalic. EYES: Pupils equal round and reactive to light, extraocular movements intact, sclera anicteric, conjunctiva are normal. ENT: nares patent, oropharynx clear without exudates. Moist mucous membranes. NECK: Normal range of motion, supple without lymphadenopathy LUNGS: Breath sounds clear to auscultation bilaterally and equal. No wheezes rales or rhonchi. HEART: Regular rate and rhythm without murmurs EXTREMITIES: Normal range of motion, no pitting or edema. No cyanosis. NEUROLOGICAL: No focal neurological deficits. Moves all extremities spontane ously PSYCH: Agitated, does not speak in any coherent manner. SKIN: Warm, Dry, normal turgor, no rashes or lesions noted. Course - Re-evaluation Re-evalutation: 11/17/18 18:30 Presentation of a patient with known history of bipolar disorder with features that appears to be having an acute exacerbation of this underlying condition secondary to discontinuation of medications. The patient is quite agitated, intermittently hostile towards staff although redirectable at this time. She does not provide meaningful history. Medical screening exam unremarkable. Medical screening labs are pending. Patient is clearly a danger to herself and others at this time. Involuntary hold has been placed. Patient will be given 5 mg oral haloperidol to prevent escalation. She is otherwise medically cleared for evaluation and disposition by [facility] in the morning. - Vital Signs Vital signs: Temp Pulse Resp BP Pulse Ox 98.7 F 86 16 119/80 99 11/17/18 17:58 11/17/18 17:58 11/17/18 17:58 11/17/18 17:58 11/17/18 17:58 - Laboratory Result Diagrams: 11/17/18 23:30 11/17/18 23:30 Laboratory results interpreted by me: 11/17/18 11/17/18 11/17/18 18:30 23:30 23:30 Hgb 11.6 L Hct 33.8 L RDW 14.2 H Plt Count 149 L Glucose 119 H Total Protein 6.1 L Urine Ketones TRACE H Urine Urobilinogen 2.0 H Urine Ascorbic Acid 20 H Salicylates < 1.0 L Acetaminophen < 10 L - EKG Interpretation by Me Additional EKG results interpreted by me: 11/18/18 02:19 Sinus rhythm, rate 74. No ST elevations or depressions. QTC is 422. Discharge - Discharge Clinical Impression: Agitation Bipolar disorder Qualifiers: Active/Remission status: remission status unspecified Qualified Code(s): F31.9 - Bipolar disorder, unspecified Condition: Stable
[2018-11-17 19:03] LABS: APPEARANCE,URINE SLIGHTLY-CLOUDY; BILIRUBIN,URINE NEGATIVE (NEGATIVE); COLOR,URINE YELLOW; GLUCOSE, URINE NEGATIVE (NEGATIVE); KETONES,URINE TRACE mg/dL (NEGATIVE); LEUKOCYTE ESTERASE,URINE NEGATIVE (NEGATIVE); NITRITE,URINE NEGATIVE (NEGATIVE); PROTEIN,URINE NEGATIVE (NEGATIVE); URINE SPECIFIC GRAVITY 1.027
[2018-11-17 19:12] LABS: URINE AMPHETAMINES SCREEN NEGATIVE; URINE BARBITURATES SCREEN UNCONFIRMED POSITIVE; URINE BENZODIAZEPINES SCREEN NEGATIVE; URINE COCAINE SCREEN NEGATIVE; URINE MARIJUANA (THC) SCREEN UNCONFIRMED POSITIVE; URINE METHADONE SCREEN NEGATIVE; URINE PHENCYCLIDINE SCREEN NEGATIVE
--- NOTE | 2018-11-17 20:35 | EKG REPORT ---
SEVERITY:- NORMAL ECG - SINUS RHYTHM : Confirmed by: Nirmal Israel MD 17-Nov-2018 20:35:16
[2018-11-17 23:41] LABS: ABSOLUTE EOSINOPHILS # (AUTO) 0.1 10^3/uL (0.0-0.6); ABSOLUTE LYMPHOCYTES (AUTO) 1.8 10^3/uL (0.5-4.7); ABSOLUTE MONOCYTES (AUTO) 0.4 10^3/uL (0.1-1.4); ABSOLUTE NEUT (AUTO) 2.2 10^3/uL (1.7-8.2); BASOPHILS % (AUTO) 0.8 % (0-2); EOSINOPHILS % (AUTO) 3.1 % (0-6); HEMATOCRIT 33.8 % (36.0-47.0); HEMOGLOBIN 11.6 g/dL (12.0-15.5); LYMPHOCYTES % (AUTO) 40.1 % (13-45); MEAN CORPUSCULAR HEMOGLOBIN 27.8 pg (27.0-33.4); MEAN CORPUSCULAR HGB CONC 34.4 g/dL (32.0-36.0); MEAN CORPUSCULAR VOLUME 81 fl (80-97); MONOCYTES % (AUTO) 8.2 % (3-13); PLATELET COUNT 149 10^3/uL (150-450); RED BLOOD COUNT 4.18 10^6/uL (3.72-5.28); RED CELL DISTRIBUTION WIDTH 14.2 % (11.5-14.0); SEGMENTED NEUTROPHILS % (AUTO) 47.8 % (42-78); TOTAL CELLS COUNTED % (AUTO) 100 %; WHITE BLOOD COUNT 4.6 10^3/uL (4.0-10.5)
[2018-11-18 00:08] LABS: ALANINE AMINOTRANSFERASE 44 U/L (9-52); ALKALINE PHOSPHATASE 49 U/L (38-126); ANION GAP 6 (5-19); ASPARTATE AMINO TRANSFERASE 30 U/L (14-36); BILIRUBIN,DIRECT 0.1 mg/dL (0.0-0.4); BILIRUBIN,TOTAL 0.3 mg/dL (0.2-1.3); BLOOD UREA NITROGEN 18 mg/dL (7-20); CALCIUM 9.3 mg/dL (8.4-10.2); CARBON DIOXIDE 28 mmol/L (22-30); CHLORIDE 106 mmol/L (98-107); GLUCOSE 119 mg/dL (75-110); POTASSIUM 4.2 mmol/L (3.6-5.0); SODIUM 139.8 mmol/L (137-145); TOTAL PROTEIN 6.1 g/dL (6.3-8.2)
[2018-11-18 00:09] LABS: ACETAMINOPHEN < 10 ug/mL (10-30); ALCOHOL < 10 mg/dL (NONE DETECTED); SALICYLATE < 1.0 mg/dL (2.0-20.0)
--- NOTE | 2018-11-18 08:04 | PSYCHOLOGICAL NOTE ---
Psych Note - Psych Note Date seen by psych provider: 11/18/18 Time seen by psych provider: 07:40 Psych Note: Reason for Consult: manic Patient is a 23-year-old female with a past medical history of bipolar type I with psychotic features who initially presented agitated, irritable and apparently off all medications. Upon evaluation patient is calm and engages in organized and linear conversation. She reports that she has been having difficulty getting into her outpatient mental health provider so recently switched to [facility], [place]. She confirms that she will be following up with them. Patient is observed with light purple paint on her face and when quest ioned she reports that yesterday the family was playing football and dressed up for the occasion. She reports those had been a long time since her mother and father and her could get together with the family so they went "all out." She reports that she has not been on medications since having difficulties seeing her provider and would appreciate any assistance with obtaining her medication. She confirms that she can afford her medications and that she will take them as directed. Patient is alert and orientated to person, place, time and circumstance. Mood is euthymic with congruent affect. Patient denies suicidal and homicidal ideation. Delusions are absent behaviors congruent with an intact reality based presentation i.e. organized and linear thought process. Eye contact was well- maintained. Conversational speech is within normal rate, tone and prosody. Intellectual abilities appear to be within the average range. Attention and concentration are currently good. Insight, judgment, impulse control are historically fair. Medication recommendations per [facility]'s contracted psychiatrist Dr. Trey GRANGER are as follows Zyprexa 5mg twice daily clonidine 0.1 mg nightly Cogentin 1 mg daily Diagnosis 1. 296.44 (F31.2) Bipolar I with psychotic features Impression\\plan: Patient is recommended for rescind of IVC and cleared from acute psychiatric services. Patient is no longer demonstrating manic behavior. She is sitting calm and able to have an organized linear conversation. Patient disclosed that she was having some difficulties getting in to see her provider but confirms she is now with [facility]. Patient historically has had a higher level of care with ACTT and quickly stabilizes (overnight) in ED when needed. Dr. Malloy was consulted and the care management this patient; attending physician is agreement with recommendations and disposition.
[2018-11-18] MEDS ORDERED: BENZTROPINE MESYLATE 1 MG TABLET PO ONE (09:46)
[2018-11-18] MEDS ORDERED: OLANZAPINE 5 MG TABLET PO ONE (09:46)
--- NOTE | 2018-11-18 09:49 | ER Document Report ---
Doctor's Note Notes: 11/18/18 09:48 Rounds: Chart reviewed and patient interviewed. Patient with a history of bipolar disorder came in agitated and hyper. Apparently is out of her medications. Lab studies were all normal except she is positive for barbiturates and marijuana on his drug screens. Vital signs are all essentially normal. Patient appears to be medically stable for transfer or discharge. Jeffery Bang MD
[2018-11-18 16:58] VITALS: BP 112/62
== END 2018-11-18 16:58 | disposition home or self-care (01) ==
LOC: ER 17:46
DX: F31.2 Bipolar disorder, current episode manic severe with psychotic features (principal); R45.1 Restlessness and agitation; Z88.8 Allergy status to other drugs, medicaments and biological substances
CPT/HCPCS: 93005; 99285; 36415; 80307 ×4; 84703; 85025; 80053; 81001; 93010; J3490 ×3

== ENCOUNTER 2019-06-16 00:28 | Emergency (ER) | payer OTHER ==
[2019-06-16 00:43] VITALS: BP 135/78
== END 2019-06-16 02:10 | disposition left against medical advice (07) ==
LOC: ER 00:28
DX: Z53.21 Procedure and treatment not carried out due to patient leaving prior to being seen by health care provider (principal)